=== PATIENT | female | born 1945 | race Caucasian/White ===

== ENCOUNTER → 2018-04-08 | Outpatient (CLI) | payer OTHER ==
[~2018-04-08] MED LIST: AMLODIPINE BESY10 MG PO; BENAZEPRIL HCL20 MG PO; CALCIUM 600 +1 EAC1 PO; FISH OIL 1,001000 M2 PO; FLEXERIL PO; LOPRESSOR50; PIROXICAM20 MG PO; PRAVACHOL40 MG PO; TENORMIN25 MG PO; TORADOL 10 MG T10 MG PO; TRAMADOL 50 MG50 MG PO; XANAX1 MG PO; ZOLOFT50 MG PO
== END ==
LOC: M.RAD 04-02 13:31
DX: Z13.820 Encounter for screening for osteoporosis (principal); M85.89 Other specified disorders of bone density and structure, multiple sites; Z78.0 Asymptomatic menopausal state

== ENCOUNTER → 2020-05-28 | Outpatient (CLI) | payer MEDICARE ==
[2020-05-28 11:22] LABS: CREATININE 0.7 mg/dL (0.6-1.3)
== END ==
LOC: M.CT 10:01 → M.LAB 10:30 → M.CT 11:30
PROVIDERS: ATTEND Nurse Practitioner Family
DX: G31.9 Degenerative disease of nervous system, unspecified (principal); R41.3 Other amnesia; Z81.8 Family history of other mental and behavioral disorders